=== PATIENT | female | born 1995 | race Two or more races ===

== ENCOUNTER 2024-11-09 18:22 | Emergency (ER) | payer SELFPAY ==
[~2024-11-09] VITALS: Ht 149.9 cm; Wt 59.9 kg
[2024-11-09 18:30] VITALS: BP 118/71; PULSE 74; RESP 16; O2SAT 99
== END 2024-11-09 21:23 | disposition left against medical advice (07) ==
LOC: ER 18:22
DX: R51.9 Headache, unspecified (principal); Z53.21 Procedure and treatment not carried out due to patient leaving prior to being seen by health care provider

== ENCOUNTER 2025-06-08 17:30 | Emergency (ER) | payer OTHER ==
[~2025-06-08] VITALS: Ht 149.9 cm; Wt 60.1 kg
[2025-06-08 17:38] VITALS: BP 129/67; PULSE 65; RESP 18; TEMP 98.9; O2SAT 100
[2025-06-08] MEDS ORDERED: IBUP-1456 PO (18:37)
--- NOTE | 2025-06-08 18:38 | ED.PDOC ---
HPI Comments LACERATION TO LEFT THUMB NAIL WITH KNIFE WHILE CUTTING [place] TODAY BLEEDING CONTROLLED STRONG PULSES, CAP REFILL <3 SEC. denies numbness and weakness Chief Complaint: Laceration Time Seen by MD: 18:06 Primary Care Provider: NONE Reviewed Notes: Nurses Notes, Medications, Allergies Allergies: Coded Allergies: NO KNOWN ALLERGIES (Unverified , 11/09/24) Information Source: Patient Mode of Arrival: Ambulatory Complexity: Simple Laceration Length (cm): 2 Past Medical History PAST MEDICAL HISTORY: Denies Surgical History: Denies all surgeries SERVER PROGRAMMER History: No Pertinent SERVER PROGRAMMER History Family History Family History: Reviewed,noncontributory to illness Social History Smoker: Non-Smoker Alcohol: Denies ETOH Use Drugs: Denies Drug Use All Other Systems: Reviewed and Negative (see hpi) Physical Exam General Appearance: No Apparent Distress, Normal HEENT: Pharynx Normal Neck: Full Range of Motion, Non-Tender Respiratory: Lungs Clear, No Respiratory Distress, Normal Breath Sounds Cardiovascular: No Murmur, Normal Peripheral Pulses, Regular Rate/Rhythm Breast Exam: Deferred Gastrointestinal: Non Tender, Soft Genitalia: Deferred Pelvic: Deferred Rectal: Deferred Extremities: Normal capillary refill, Normal range of motion, Non-tender Musculoskeletal : Apperance: Normal Neurologic: Alert, No Motor Deficits, Normal Affect, Normal Mood, No Sensory Deficits Cerebellar Function: Normal Reflexes: NOT DONE Skin: Dry, Lacerations (Superficial laceration distal phalanx left thumb slight sliced into the nail but intact refill less than 3 seconds foreign body), Normal Color, Warm Lymphatic: No Adenopathy Was a procedure done? Was a procedure done?: Yes Sedation Sedation?: No Informed consent obtained: Yes Laceration Repair : Location left distal thumb Length 2 cm Anesthetic: Nothing Laceration Repair Prep: Saline, by Irrigation Laceration Repair Wound Comple: subcut tissue repair Laceration Repair: Gauze (with surgicell) Informed consent obtained: Yes Risks, benefits, and alternati: Yes Notes Patient tolerated well with minimal blood loss Differential diagnosis Generic Laceration: Fracture, Retained Foriegn Body, Neurovascular Injury, Tendon Injury X-Ray, Labs, Meds, VS Vital Signs Date Time Temp Pulse Resp B/P (MAP) Pulse Ox O2 Delivery O2 Flow Rate FiO2 06/08/25 17:38 98.9 65 18 129/67 100 98.9 X-Ray, Labs, Meds, VS Comment See procedure note. Post wound care provided. Counter Tylenol or Motrin as needed for the pain per labeled dosing instructions 2-3 days with the primary care for wound evaluation. ER Return precautions patient indicates understanding agrees with discharge plan of care. Time of 1ST Reevaluation: 18:05 Reevaluation 1ST: Unchanged Time of 2ND Reevaluation: 18:36 Reevaluation 2ND: Improved Patient Education/Counseling: Diagnosis, Treatment, Prognosis, Need For Follow Up Family Education/Counseling: No Family Present Departure 1 Departure Time of Disposition: 18:37 Impression: Primary Impression: Superficial laceration of finger Disposition: 01 HOME / SELF CARE / HOMELESS Condition: Stable e-Prescriptions Ibuprofen (Ibuprofen) 800 Mg Tab 800 MG PO Q8HP PRN for 4 Days, #12 TAB Prov: MI ALMODOVAR 06/08/25 Discharged With: Spouse Critical Care Note Critical Care Time?: No Stability Stability form required: MI Hancock Jun 08, 2025 18:38
== END 2025-06-08 18:46 | disposition home or self-care (01) ==
LOC: ER 17:30
DX: S61.112A Laceration without foreign body of left thumb with damage to nail, initial encounter (principal); W26.0XXA Contact with knife, initial encounter; Y93.89 Activity, other specified; Y92.89 Other specified places as the place of occurrence of the external cause; Y99.8 Other external cause status

== ENCOUNTER 2025-06-17 23:15 | Emergency (ER) | payer OTHER ==
[~2025-06-17] VITALS: Ht 149.9 cm; Wt 60.7 kg
--- NOTE | 2025-06-18 01:14 | DVH ---
CLINICAL INDICATION: left knee pain TECHNIQUE: XY L KNEE 3V XRAY Comparison: None FINDINGS/IMPRESSION: : There is no evidence of acute fracture or dislocation. Soft tissues are unremarkable.
[2025-06-18] MEDS ORDERED: IBUP-1456 PO (03:41)
--- NOTE | 2025-06-18 03:41 | ED.PDOC ---
Musculoskeletal HPI Comments 30-year-old female presents to ER with complaints of left knee pain x5 days. Patient reports that she started experiencing left knee pain five days ago s/p falling off her "longboard" and landing on her left knee onto pavement. She rates her current pain a 9/10 to left knee and notes she's been taking ibuprofen for her pain with slight relief. Patient presents to ER ambulatory on arrival, with steady gait, in no distress. Denies numbness/tingling, left hip pain, left tib/fib pain, left ankle pain or any further symptoms/complaints Chief Complaint: Fall Injury Time Seen by MD: 23:47 Primary Care Provider: UNKNOWN Reviewed Notes: Nurses Notes, Medications, Allergies Allergies: Coded Allergies: NO KNOWN ALLERGIES (Unverified , 11/09/24) Home Meds Active Scripts Ibuprofen (Ibuprofen) 800 Mg Tab, 1 TAB PO TID PRN, #30 TAB 0 Refills Prov:MAURI ST 06/18/25 Discontinued Scripts Ibuprofen (Ibuprofen) 800 Mg Tab, 800 MG PO Q8HP PRN for 4 Days, #12 TAB Prov:MI ALMODOVAR 06/08/25 Information Source: Patient Mode of Arrival: Ambulatory Past Medical History PAST MEDICAL HISTORY: Denies Surgical History: Denies all surgeries SOIL CONSERVATION TECHNICIAN History: No Pertinent SOIL CONSERVATION TECHNICIAN History LMP "Current" Family History Family History: Unknown Social History Smoker: Non-Smoker Alcohol: Denies ETOH Use Drugs: Denies Drug Use Lives In: Home Constitutional: denies: chills, diaphoresis, fatigue, fever, malaise, sweats, weakness, others EENTM: denies: blurred vision, double vision, ear bleeding, ear discharge, ear drainage, ear pain, ear ringing, eye pain, eye redness, hearing loss, mouth pain, mouth swelling, nasal discharge, nose bleeding, nose congestion, nose pain, photophobia, tearing, throat pain, throat swelling, voice changes, others Respiratory: denies: cough, hemoptysis, orthopnea, SOB at rest, shortness of breath, SOB with excertion, stridor, wheezing, others Cardiovascular: denies: chest pain, dizzy spells, diaphoresis, Dyspnea on exertion, edema, irregular heart beat, left arm pain, lightheadedness, palpitations, PND, syncope, others Gastrointestinal: denies: abdomen distended, abdominal pain, blood streaked bowels, constipated, diarrhea, dysphagia, difficulty swallowing, hematemesis, melena, nausea, poor appetite, poor fluid intake, rectal bleeding, rectal pain, vomiting, others Genitourinary: denies: abnormal vagina bleeding, burning, dyspareunia, dysuria, flank pain, frequency, hematuria, incontinence, pain, , vagina discharge, urgency, others Neurological: denies: dizziness, fainting, headache, left sided numbness, left sided weakness, numbness, paresthesia, pre-existing deficit, right sided numbness, right sided weakness, seizure, speech problems, tingling, tremors, weakness, others Musculoskeletal: reports: others (As stated in HPI) Integumetry: denies: bruises, change in color, change in hair/nails, dryness, laceration, lesions, lumps, rash, wounds, others Allergic/Immunocompromised: denies: Difficulty Healing, Frequent Infections, Hives, Itching, others Hematologic/Lymphatic: denies: anemia, blood clots, easy bleeding, easy bruis ing, swollen glands, others Endocrine: denies: excessive hunger, excessive sweating, excessive thirst, exc essive urination, flushing, intolerance to cold, intolerance to heat, unexplained weight gain, unexplained weight loss, others Psychiatric: denies: anxiety, bipolar disorder, depression, hopeless, panic disorder, schizophrenia, sleepless, suicidal, others Physical Exam General Appearance: No Apparent Distress HEENT: PERRL/EOMI Neck: Full Range of Motion, Non-Tender, Normal Respiratory: Chest Non-Tender, Lungs Clear, No Accessory Muscle Use, No Respiratory Distress, Normal Breath Sounds Cardiovascular: No Murmur, No Gallop, Regular Rate/Rhythm Breast Exam: Deferred Gastrointestinal: NOT DONE Genitalia: Deferred Pelvic: Deferred Rectal: Deferred Extremities: No calf tenderness, Normal capillary refill, Normal range of motion Musculoskeletal : Extremity Location: Knee (TTP/mild healing abrasions noted to left anterior knee. No signs of infection appreciated. Positive anterior drawer test left knee. Negative Anna's test left knee. No further skin changes noted. Pulses intact. No other TTP to left lower extremity noted) Neurologic: Alert, No Motor Deficits, Normal Affect, Normal Mood, No Sensory Deficits Cerebellar Function: Normal Reflexes: Normal Skin: Dry, Normal Color, Warm Peripheral Pulses: 2+ dorsalis pedis (L), 2+ Radial (R), 2+ Radial (L), 2+ Brachial (R), 2+ Brachial (L) Lymphatic: No Adenopathy Was a procedure done? Was a procedure done?: No Sedation Sedation?: No Differential Diagnosis EXT Differential Diagnosis: Fracture, Dislocation, Neurovascular injury X-Ray, Labs, Meds, VS Vital Signs Date Time Temp Pulse Resp B/P (MAP) Pulse Ox O2 Delivery O2 Flow Rate FiO2 06/17/25 23:15 98.3 78 18 123/83 97 98.3 PATIENT: PARISH HAYESACCT: [id number] UNIT: [id number] : 1995 LOC: ER ROOM / BED: / AGE / SEX: 30 / F ADM STATUS: REG ER SERVICE [id number] ORDERING PHYSICIAN: MAURI ST PROCEDURE(s): LKNE3 - L KNEE 3V XRAY REASON: left knee pain ORDER NUMBER(s): [id number], ACCESSION NUMBER(s): [id number] CLINICAL INDICATION: left knee pain TECHNIQUE: XY L KNEE 3V XRAY Comparison: None FINDINGS/IMPRESSION: : There is no evidence of acute fracture or dislocation. Soft tissues are unremarkable. ATED BY: DAVID CULLEN MD DICTATED DATE/TIME: 06/18/25110 SIGNED BY: DAVID CULLEN MD SIGNED DATE/TIME: 06/18/25110 CC: Left knee x-ray reviewed Left knee immobilizer applied Toradol 60 mg IM ordered Patient neurovascularly intact and reported improvement in symptoms prior to discharge Advised to follow up with PCP and orthopedics in 1-2 days Patient verbalized understanding and agreeable with current plan of care Advised to return to ER immediately if symptoms worsen Images Reviewed?: Images reviewed and evaluated by me Time of 1ST Reevaluation: 03:24 Reevaluation 1ST: N/A Patient Education/Counseling: Diagnosis, Treatment, Prognosis, Need For Follow Up Family Education/Counseling: No Family Present Departure 1 Departure Time of Disposition: 03:40 Impression: Primary Impression: Left knee sprain Qualified Codes: S83.92XA - Sprain of unspecified site of left knee, initial encounter Disposition: HOME / SELF CARE / HOMELESS Condition: Stable e-Prescriptions Ibuprofen (Ibuprofen) 800 Mg Tab 1 TAB PO TID PRN, #30 TAB 0 Refills Prov: MAURI ST 06/18/25 Discharged With: Friend Critical Care Note Critical Care Time?: No Stability Stability form required: No Heart Score Heart Score: Heart Score Response (Comments) Value History N/A 0 EKG N/A 0 Age N/A 0 Risk Factors N/A 0 Troponin N/A 0 Total [address] Jun 18, 2025 03:41
[2025-06-18] MEDS: KETOROLAC TROMETH 60MG/2ML VIAL IM ONE (05:16)
[2025-06-18 05:37] VITALS: BP 111/61; PULSE 56; RESP 12; TEMP 98.2; O2SAT 98
== END 2025-06-18 04:45 | disposition home or self-care (01) ==
LOC: ER 23:15
DX: S83.92XA Sprain of unspecified site of left knee, initial encounter (principal); Z79.899 Other long term (current) drug therapy; W19.XXXA Unspecified fall, initial encounter; Y93.89 Activity, other specified; Y92.89 Other specified places as the place of occurrence of the external cause; Y99.8 Other external cause status
CPT/HCPCS: 29505; 73562; 96372; 99283; J1885

== ENCOUNTER 2025-06-27 01:17 | Inpatient (IN) | payer OTHER ==
[~2025-06-27] VITALS: Ht 149.9 cm; Wt 67.4 kg
[~2025-06-27 01:17] MED LIST: IBUP-1456 PO
[2025-06-27 01:44] VITALS: PULSE 68; RESP 18; O2SAT 99
[2025-06-27] MEDS: HYDROcodone-ACET 10/325MG TAB PO ONE (01:44)
[2025-06-27 02:17] LABS: Alkaline Phosphatase 59 U/L (46-116); Anion Gap 9 (5-15); BUN/Creatinine Ratio 14.6 (10.0-20.0); Blood Urea Nitrogen 14 mg/dL (9-23); Calcium 9.4 mg/dL (8.7-10.4); Carbon Dioxide 25 mmol/L (20-31); Chloride 106 mmol/L (98-107); Glucose 102 mg/dL (74-106); Potassium 3.8 mmol/L (3.5-5.1); Sodium 140 mmol/L (136-145); Total Protein 6.9 g/dL (5.7-8.2)
[2025-06-27 02:18] LABS: Albumin 4.4 g/dL (3.2-4.8); Bilirubin, Total 0.8 mg/dL (0.2-1.0); Hematocrit 34.0 % (36.0-46.0); Hemoglobin 12.4 g/dL (12.2-16.2); Mean Corpuscular Hemoglobin 32.8 pg (28.0-32.0); Mean Corpuscular Volume 90.1 fL (80.0-100.0); Nucleated Red Blood Cells % 0.1 %
[2025-06-27 02:19] LABS: Alanine Aminotransferase 9 U/L (7-40)
--- NOTE | 2025-06-27 02:40 | ED.PDOC ---
History of Present Illness HPI Comments This patient is a 30-year-old female who was brought to the ED today via EMS due to complaints of bilateral leg pain and weakness concerns. Patient states she was at home when she had a mechanical fall event. Patient states it status post to that event she has not been able to extend her legs and she has had bilateral thigh pain concerns. Patient gives a medical history of possible MS diagnosis for which she is being worked up through her primary care provider. Patient states this pain is new she does note multiple sites of "flare-ups" of pain and weakness upper and lower extremities Currently follows with neurology and rheumatology patient states she has an MRI scheduled of her brain August 02 follows at [facility]. Patient denies any fever nausea or vomiting. Patient denies any head trauma or blood loss from a traumatic event. Chief Complaint: Lower Extremity Time Seen by MD: 01:29 Primary Care Provider: UNKNOWN Reviewed Notes: Nurses Notes, Camp Tender Notes, Medications, Allergies Allergies: Coded Allergies: NO KNOWN ALLERGIES (Unverified , 11/09/24) Home Meds Active Scripts Ibuprofen (Ibuprofen) 800 Mg Tab, 1 TAB PO TID PRN, #30 TAB 0 Refills Prov:AMURI ST 06/18/25 Information Source: Patient, Emergency Med Personnel Mode of Arrival: EMS Severity: Moderate Timing: Minutes Duration: Since onset Prehospital treatment: None Past Medical History PAST MEDICAL HISTORY: Denies Surgical History: Denies all surgeries SILK SCREEN CUTTER History: No Pertinent SILK SCREEN CUTTER History Family History Family History: Unknown Social History Smoker: Non-Smoker Alcohol: Denies ETOH Use Drugs: Denies Drug Use Lives In: Home Constitutional: denies: chills, diaphoresis, fatigue, fever, malaise, sweats, weakness, others EENTM: denies: blurred vision, double vision, ear bleeding, ear discharge, ear drainage, ear pain, ear ringing, eye pain, eye redness, hearing loss, mouth pain, mouth swelling, nasal discharge, nose bleeding, nose congestion, nose pain , photophobia, tearing, throat pain, throat swelling, voice changes, others Respiratory: denies: cough, hemoptysis, orthopnea, SOB at rest, shortness of breath, SOB with excertion, stridor, wheezing, others Cardiovascular: denies: chest pain, dizzy spells, diaphoresis, Dyspnea on exertion, edema, irregular heart beat, left arm pain, lightheadedness, palpitations, PND, syncope, others Gastrointestinal: denies: abdomen distended, abdominal pain, blood streaked bowels, constipated, diarrhea, dysphagia, difficulty swallowing, hematemesis, melena, nausea, poor appetite, poor fluid intake, rectal bleeding, rectal pain, vomiting, others Genitourinary: denies: abnormal vagina bleeding, burning, dyspareunia, dysuria, flank pain, frequency, hematuria, incontinence, pain, , vagina discharge, urgency, others Neurological: denies: dizziness, fainting, headache, left sided numbness, left sided weakness, numbness, paresthesia, pre-existing deficit, right sided numbness, right sided weakness, seizure, speech problems, tingling, tremors, weakness, others Musculoskeletal: reports: others (Bilateral lower extremity tightness and bilateral thigh pain); denies: back pain, gout, joint pain, joint swelling, muscle pain, muscle stiffness, neck pain Integumetry: denies: bruises, change in color, change in hair/nails, dryness, laceration, lesions, lumps, rash, wounds, others Allergic/Immunocompromised: denies: Difficulty Healing, Frequent Infections, Hives, Itching, others Hematologic/Lymphatic: denies: anemia, blood clots, easy bleeding, easy bruising, swollen glands, others Endocrine: denies: excessive hunger, excessive sweating, excessive thirst, excessive urination, flushing, intolerance to cold, intolerance to heat, unexplained weight gain, unexplained weight loss, others Psychiatric: denies: anxiety, bipolar disorder, depression, hopeless, panic disorder, schizophrenia, sleepless, suicidal, others Physical Exam General Appearance: Moderate Distress (Moderate distress due to bilateral lower extremity concerns.), Normal HEENT: Normal ENT Inspection, Pharynx Normal, TMs Normal Neck: Full Range of Motion, Non-Tender, Normal, Normal Inspection Respiratory: Chest Non-Tender, Lungs Clear, No Accessory Muscle Use, No Respiratory Distress, Normal Breath Sounds Cardiovascular: No Edema, No JVD, No Murmur, No Gallop, Normal Peripheral Pulses, Regular Rate/Rhythm Breast Exam: Deferred Gastrointestinal: No Organomegaly, Non Tender, No Pulsatile Mass, Normal Bowel Sounds, Soft Genitalia: Deferred Pelvic: Deferred Rectal: Deferred Extremities: Other (Bilateral lower extremities were unremarkable on evaluation. No signs of trauma. No edema or ecchymosis. No peripheral vascular disease. Patient states pain on palpation of bilateral anterior thighs.) Neurologic: Alert Cerebellar Function: NOT DONE Reflexes: NOT DONE Skin: Dry, Normal Color, Warm Lymphatic: No Adenopathy Was a procedure done? Was a procedure done?: No Differential Dx Considerations may include: Sepsis, electrolyte abnormality, lumbar radiculopathy X-Ray, Labs, Meds, VS Vital Signs Date Time Temp Pulse Resp B/P (MAP) Pulse Ox O2 Delivery O2 Flow Rate FiO2 06/27/25 03:46 63 14 115/65 06/27/25 03:16 67 20 126/67 06/27/25 01:44 68 18 99 Room Air* 0 21 06/27/25 01:44 98.4 18 68 116/91 (99) 99 98.4 06/27/25 01:22 98.4 68 18 116/91 99 98.4 Lab Test 06/27/25 01:39 Range/Units White Blood Count 7.2 4.4-10.8 10^3/uL Red Blood Count 3.78 L 4.0-5.20 10^6/uL Hemoglobin 12.4 12.2-16.2 g/dL Hematocrit 34.0 L 36.0-46.0 % Mean Corpuscular Volume 90.1 80.0-100.0 fL Mean Corpuscular Hemoglobin 32.8 H 28.0-32.0 pg Mean Corpuscular Hemoglobin Concent 36.4 H 32.0-36.0 g/dL Red Cell Distribution Width 13.1 11.8-14.3 % Platelet Count 330 140-450 10^3/uL Mean Platelet Volume 8.4 6.9-10.8 fL Neutrophils (%) (Auto) 58.0 37.0-80.0 % Lymphocytes (%) (Auto) 31.5 10.0-50.0 % Monocytes (%) (Auto) 8.0 0.0-12.0 % Eosinophils (%) (Auto) 1.8 0.0-7.0 % Basophils (%) (Auto) 0.7 0.0-2.0 % Neutrophils # (Auto) 4.2 1.6-8.6 10 ^3/uL Lymphocytes # (Auto) 2.3 0.4-5.4 10 ^3/uL Monocytes # (Auto) 0.6 0-1.3 10 ^3/uL Eosinophils # (Auto) 0.1 0-0.8 10 ^3/uL Basophils # (Auto) 0.1 0-0.2 10 ^3/uL Nucleated Red Blood Cells 0.1 % Erythrocyte Sedimentation Rate Pending Sodium Level 140 136-145 mmol/L Potassium Level 3.8 3.5-5.1 mmol/L Chloride Level 106 98-107 mmol/L Carbon Dioxide Level 25 20-31 mmol/L Anion Gap 9 5-15 Blood Urea Nitrogen 14 9-23 mg/dL Creatinine 0.96 0.550-1.02 mg/dL Glomerular Filtration Rate Calc 81 >90 mL/min BUN/Creatinine Ratio 14.6 10.0-20.0 Serum Glucose 102 74-106 mg/dL Calcium Level 9.4 8.7-10.4 mg/dL Total Bilirubin 0.8 0.2-1.0 mg/dL Aspartate Amino Transferase (AST) 15 13-40 U/L Alanine Aminotransferase (ALT) 9 7-40 U/L Alkaline Phosphatase 59 46-116 U/L C-Reactive Protein High Sensitivity 0.02 <1.0 mg/dL Total Protein 6.9 5.7-8.2 g/dL Albumin 4.4 3.2-4.8 g/dL Current Medications Medications (Trade) Dose Ordered Sig/Cynthia Route Start Time Stop Time Status Last Admin Acetaminophen/ Hydrocodone Bitart (Model 10/325MG Tab) 1 tab ONCE ONCE PO 06/27/25 01:45 06/27/25 01:46 DC 06/27/25 01:44 Methylprednisolone Sodium Succinate (Solu Medrol) 125 mg ONCE ONCE IV 06/27/25 03:15 06/27/25 03:16 DC 06/27/25 03:15 Morphine Sulfate 2 mg ONCE ONCE IV 06/27/25 03:15 06/27/25 03:16 DC 06/27/25 03:16 X-Ray, Labs, Meds, VS Comment Studies and imaging were pending at time of this note. Patient care is being transferred to [facility] for evaluation of laboratory and imaging results. Once returned, he will respond accordingly. CT brain shows no acute findings. Does show otitis media however patient has no fever or pain CT cervical spine shows no acute fractures subluxations or osseous lesions. CT Lumbar spine shows no acute fractures subluxations or osseous lesions Patient was given Model 10 mg p.o. patient reports pain continues. Lumbar spine x-ray shows no acute fractures subluxations or osseous lesions. Patient was then given Solu-Medrol 125 mg IV push in 2 mg of morphine IV push she reports improvement in pain however notes continued weakness in her right lower extremi ty. Patient states the weakness on the right side continues in his unable to ambulate. Patient states this pain is new she does note multiple sites of "flare-ups" of pain and weakness upper and lower extremities Currently follows with neurology and rheumatology patient states she has an MRI scheduled of her brain August 02 follows at [facility]. Patient placed for hospitalist for admission for further workup of current weakness and pain. Recommend Neurology and rheumatology consultation, consider GuillainBarr syndrome (GBS), MS workup. Continue to manage patient's pain CRP negative CMP within normal limits CBC within normal limits Pending ESR Time of 1ST Reevaluation: 02:39 Reevaluation 1ST: Improved Time of 2ND Reevaluation: 03:44 Reevaluation 2ND: Improved Consultation: PCP Patient Education/Counseling: Diagnosis, Treatment Family Education/Counseling: Diagnosis, Treatment SEPSIS Sepsis Screen Date sepsis recognized/suspect: Jun 27, 2025 Time Sepsis recognized/suspect: 0122 Recent Procedure: No On Antibiotic Therapy: No Respiratory Rate >20: No Heart Rate >90: No Temp<36 C (96.8 F) or >38.3 C: No SBP <90 or MAP <65 mmHG: No New Acute Mental Status Change: No Is the patient on CPAP, BIPAP,: No Physician Orders Urinalysis (06/27/25 01:33) Lumbar Spine 3 View (06/27/25 01:33) Head Without Contrast (06/27/25 03:55) Cervical Without Contrast (06/27/25 03:55) Ls Spine Wo Contrast (06/27/25 03:57) Erythrocyte Sedimentation Rate (06/27/25 03:58) Vital Signs Date Time Temp Pulse Resp B/P (MAP) Pulse Ox O2 Delivery O2 Flow Rate FiO2 06/27/25 03:46 63 14 115/65 06/27/25 03:16 67 20 126/67 06/27/25 01:44 68 18 99 Room Air* 0 21 06/27/25 01:44 98.4 18 68 116/91 (99) 99 98.4 06/27/25 01:22 98.4 68 18 116/91 99 98.4 Laboratory Tests Test 06/27/25 01:39 White Blood Count 7.2 10^3/uL (4.4-10.8) Medications Medications Dose Ordered Sig/Cynthia Route Start Time Stop Time Status Last Admin Dose Admin Acetaminophen/ Hydrocodone Bitart 1 tab ONCE ONCE PO 06/27/25 01:45 06/27/25 01:46 DC 06/27/25 01:44 Methylprednisolone Sodium Succinate 125 mg ONCE ONCE IV 06/27/25 03:15 06/27/25 03:16 DC 06/27/25 03:15 Morphine Sulfate 2 mg ONCE ONCE IV 06/27/25 03:15 06/27/25 03:16 DC 06/27/25 03:16 Departure 1 Departure Time of Disposition: 02:39 Impression: Primary Impression: Right leg pain Additional Impression: Lower extremity weakness Qualified Codes: R29.898 - Other symptoms and signs involving the musculoskeletal system Disposition: ADMITTED INPATIENT Condition: Fair Discharged With: Self Critical Care Note Critical Care Time?: No Stability Stability form required: No Heart Score Heart Score: Heart Score Response (Comments) Value History N/A 0 EKG N/A 0 Age N/A 0 Risk Factors N/A 0 Troponin N/A 0 Total 0 CELSO GARCIA PAC Jun 27, 2025 02:40 MI ALMODOVAR [employer]ER Jun 27, 2025 03:50
--- NOTE | 2025-06-27 02:48 | DVH ---
INDICATION: Bilateral lower extremity neuropathy COMPARISON: None TECHNIQUE: 3 views of the lumbar spine were obtained. FINDINGS: The lumbar vertebral alignment is normal. The intervertebral disc spaces are well-maintained. No significant facet arthropathy is noted. No acute fracture, vertebral compression deformity or aggressive osseous lesions. The paravertebral soft tissues are grossly unremarkable. IMPRESSION: 1. No acute fracture.
[2025-06-27] MEDS: methylPREDNISolone SOD SUCC 125 MG/2 ML VL IV ONE (03:15)
[2025-06-27] MEDS: MORPHINE SULFATE INJ 2 MG/ml SYRG IV ONE (03:16)
--- NOTE | 2025-06-27 04:35 | DVH ---
EXAM: CT HEAD WITHOUT CONTRAST INDICATION: right extremity weakness and pain TECHNIQUE: CT of the head without intravenous contrast. Radiation Dose : 1. Head: CT Dose: CTDI volume is 54.62 mGy. Dose-length product is 967.14 mGy*cm The dose indicators for CT are the volume Computed Tomography (CT) Dose Index (CTDIvol) and the Dose Length Product (DLP), and are measured in units of mGy and mGy-cm, respectively. These indicators are not patient dose, but values generated from the CT scanner acquisition factors. The report includes radiation exposure data for exposures received during this examination. COMPARISON: CT CERVICAL WITHOUT CONTRAST on DOS: 06/27/25 FINDINGS: There is no evidence of acute intracranial hemorrhage, extra-axial collection, mass effect, midline s hift, herniation or hydrocephalus. The ventricles, sulci and cisterns are age appropriate. The valles-white differentiation is intact. Left maxillary mucosal sinus disease. The remaining visualized paranasal sinuses are clear. There is chronic appearing scarring of the bilateral mastoid air cells, [id number]. Opacificatio n of the left middle ear cavity suggests otitis media. The surrounding soft tissues and osseous structures are unremarkable. IMPRESSION: 1. No acute Radiation optimization: All CT scans at this facility use at least one of these dose optimization megan hniques: automated exposure control mA and/or kV adjustment per patient size (includes targeted exam s where dose is matched to clinical indication) or iterative reconstruction.
--- NOTE | 2025-06-27 04:37 | DVH ---
EXAM: CT LS SPINE WO CONTRAST INDICATION: right lower extremity weakness and pain COMPARISON: XY LUMBAR SPINE 3 VIEW on DOS: 06/27/25 TECHNIQUE: Multiple axial CT images of the lumbar spine were obtained using bone algorithm. Axial an d coronal reformatting was done. Bone and soft tissue windows were reviewed. Radiation Dose Information: CT Dose: CTDI volume is 17.26 mGy. Dose-length product is 552.0 mGy*cm FINDINGS: No CT evidence of acute fracture or traumatic mal-alignment. The visualized paraspinal soft tissues a re grossly unremarkable. The disc spaces are relatively preserved. There is multilevel degenerative change of the spine, with disc space narrowing, subchondral sclerosis, and marginal osteophyte formation. IMPRESSION: 1. No CT evidence of acute fracture or traumatic mal-alignment of the bony lumbar spine. 2. Radiation optimization: All CT scans at this facility use at least one of these dose optimization techniques: automated exposure control mA and/or kV adjustment per patient size (includes targeted e xams where dose is matched to clinical indication) or iterative reconstruction.
--- NOTE | 2025-06-27 04:40 | DVH ---
EXAM: CT CERVICAL WITHOUT CONTRAST HISTORY: right extermity weakness and pain COMPARISON: None CTDIvol 19.66 mGy, DLP 518.24 mGy*cm. TECHNIQUE: Multiple axial CT images of the spine were obtained using bone algorithm. Axial and coron al reformatting was done. Bone and soft tissue windows were reviewed. FINDINGS: No CT evidence of definite acute fracture, spinal dislocation, or significant appearing acute subluxa tion is seen. The visualized paraspinal soft tissues are grossly unremarkable. IMPRESSION: 1. No definite CT evidence of acute fracture or dislocation of the bony cervical spine.
--- NOTE | 2025-06-27 07:13 | DVHHP2 ---
History of Present Illness Reason for Visit: Bilateral lower extremity pain status post fall History of Present Illness Kelley Valdes is a 30-year-old female with past medical history of MS, , and tubal ligation who presents to the ED with bilateral leg pain and weakness after she had fallen at home today. Patient reports that she was walking to the restroom around 1:00 a.m. picked up her babies bottle suddenly felt fire, tingling, and pain in her legs bilaterally and just suddenly fell to the ground. She reports that she fell on her left side and back. She denies any head strike or loss of consciousness. She reports that she also had an injection in her left shoulder on June 18 at an outpatient clinic in [place], states it was vitamin per her PCP. Patient reports that she also has a establish care at [facility] [place] and follows up with a dye range operator as well as a neurologist. She also states that she is scheduled for an MRI brain on July 03 at [facility] [place]. She endorses that her mom was diagnosed with MS at 16 but still continues to walk in his on medications. States that her grandma was diagnosed at 13 years of age and was wheelchair-bound until she passed. Patient endorses that she does not use any DMEs at home. She also reports that she is supposed to have a CSF test soon. Patient endorses that she has very active. Patient denies any recent travels, recent sick contacts, recent ingestion of spoiled food, chest pain, shortness of breath, fever, chills, lightheadedness, dizziness, abdominal pain, nausea, vomiting, diarrhea, or urinary symptoms. Past Medical History MS Past Surgical History: , Tubal Ligation Family History: DM, Other (Mom with MS and pacemaker. Grandma with MS. Dad with diabetes.) Smoke: No ALCOHOL: occassional Drugs: Marijuana Lives: with Family Domestic Violence: Neg Review of Systems Constitutional: Yes: Weakness Musculoskeletal: leg pain Allergies: Coded Allergies: NO KNOWN ALLERGIES (Unverified , 11/09/24) Exam Vital Signs Vital Signs Date Time Temp Pulse Resp B/P (MAP) Pulse Ox O2 Delivery O2 Flow Rate FiO2 06/27/25 03:46 63 14 115/65 06/27/25 01:44 99 Room Air* 0 21 06/27/25 01:44 98.4 98.4 General Appearance: Alert, Oriented X3, Cooperative, No acute distress HEENT: Atraumatic, PERRLA, EOMI, Mucous membr. moist/pink Respiratory: Clear to auscultation, Normal air movement Cardiovascular: Regular rate, Normal S1, Normal S2, No murmurs Abdominal: Normal bowel sounds, Soft Extremities: No clubbing, No cyanosis, No edema, Normal pulses Skin: No significant lesion Neuro: Normal speech, Sensation intact Psych/Mental Status: Mental status NL, Mood NL Labs/Xrays Labs Test 06/27/25 01:39 Range/Units White Blood Count 7.2 4.4-10.8 10^3/uL Red Blood Count 3.78 L 4.0-5.20 10^6/uL Hemoglobin 12.4 12.2-16.2 g/dL Hematocrit 34.0 L 36.0-46.0 % Mean Corpuscular Volume 90.1 80.0-100.0 fL Mean Corpuscular Hemoglobin 32.8 H 28.0-32.0 pg Mean Corpuscular Hemoglobin Concent 36.4 H 32.0-36.0 g/dL Red Cell Distribution Width 13.1 11.8-14.3 % Platelet Count 330 140-450 10^3/uL Mean Platelet Volume 8.4 6.9-10.8 fL Neutrophils (%) (Auto) 58.0 37.0-80.0 % Lymphocytes (%) (Auto) 31.5 10.0-50.0 % Monocytes (%) (Auto) 8.0 0.0-12.0 % Eosinophils (%) (Auto) 1.8 0.0-7.0 % Basophils (%) (Auto) 0.7 0.0-2.0 % Neutrophils # (Auto) 4.2 1.6-8.6 10 ^3/uL Lymphocytes # (Auto) 2.3 0.4-5.4 10 ^3/uL Monocytes # (Auto) 0.6 0-1.3 10 ^3/uL Eosinophils # (Auto) 0.1 0-0.8 10 ^3/uL Basophils # (Auto) 0.1 0-0.2 10 ^3/uL Nucleated Red Blood Cells 0.1 % Erythrocyte Sedimentation Rate 6 0-20 mm/hr Sodium Level 140 136-145 mmol/L Potassium Level 3.8 3.5-5.1 mmol/L Chloride Level 106 98-107 mmol/L Carbon Dioxide Level 25 20-31 mmol/L Anion Gap 9 5-15 Blood Urea Nitrogen 14 9-23 mg/dL Creatinine 0.96 0.550-1.02 mg/dL Glomerular Filtration Rate Calc 81 >90 mL/min BUN/Creatinine Ratio 14.6 10.0-20.0 Serum Glucose 102 74-106 mg/dL Calcium Level 9.4 8.7-10.4 mg/dL Total Bilirubin 0.8 0.2-1.0 mg/dL Aspartate Amino Transferase (AST) 15 13-40 U/L Alanine Aminotransferase (ALT) 9 7-40 U/L Alkaline Phosphatase 59 46-116 U/L C-Reactive Protein High Sensitivity 0.02 <1.0 mg/dL Total Protein 6.9 5.7-8.2 g/dL Albumin 4.4 3.2-4.8 g/dL SEPSIS Sepsis Screen Date sepsis recognized/suspect: Jun 27, 2025 Time Sepsis recognized/suspect: 012 Recent Procedure: No On Antibiotic Therapy: No Respiratory Rate >20: No Heart Rate >90: No Temp<36 C (96.8 F) or >38.3 C: No SBP <90 or MAP <65 mmHG: No New Acute Mental Status Change: No Is the patient on CPAP, BIPAP,: No Physician Orders Urinalysis (06/27/25 01:33) Lumbar Spine 3 View (06/27/25 01:33) Head Without Contrast (06/27/25 03:55) Cervical Without Contrast (06/27/25 03:55) Ls Spine Wo Contrast (06/27/25 03:57) Vital Signs Date Time Temp Pulse Resp B/P (MAP) Pulse Ox O2 Delivery O2 Flow Rate FiO2 06/27/25 03:46 63 14 115/65 06/27/25 03:16 67 20 126/67 06/27/25 01:44 68 18 99 Room Air* 0 21 06/27/25 01:44 98.4 18 68 116/91 (99) 99 98.4 06/27/25 01:22 98.4 68 18 116/91 99 98.4 Laboratory Tests Test 06/27/25 01:39 White Blood Count 7.2 10^3/uL (4.4-10.8) Medications Medications Dose Ordered Sig/Cynthia Route Start Time Stop Time Status Last Admin Dose Admin Acetaminophen/ Hydrocodone Bitart 1 tab ONCE ONCE PO 06/27/25 01:45 06/27/25 01:46 DC 06/27/25 01:44 1 TAB Methylprednisolone Sodium Succinate 125 mg ONCE ONCE IV 06/27/25 03:15 06/27/25 03:16 DC 06/27/25 03:15 125 MG Morphine Sulfate 2 mg ONCE ONCE IV 06/27/25 03:15 06/27/25 03:16 DC 06/27/25 03:16 2 MG Assessment/Plan Assessment/Plan Assessment Bilateral lower extremity pain and weakness status post fall Marijuana use Alcohol use History of MS History of History of tubal ligation Plan Admit to med surge Antiemetics Pain management Steroids given in ED Steroids ESR CRP CT lumbar spine noted CT cervical spine noted CT head noted X-ray lumbar spine noted UA UDS Bilateral lower extremity venous ultrasound ordered Diet Home medications noted DVT prophylaxis-SCDs PUD prophylaxis-not indicated no history of GERD or GI bleed Discussed plan of care with patient and nurse Neurology consult Counseled patient on cessation of marijuana and alcohol use [id number] Behavior change smoking greater than 10 minutes about use of other options also gave option of nicotine patch [id number] Preventive counseling healthy eating habits, physical activity, and regular checkups Plan discussed with: Patient Date of Service: Jun 27, 2025 Billing Provider: MABLE JAMES Common Visit Codes: [id number] INP/OBS CARE (HIGH) Secondary Visit Codes: [id number] COUNSELING IND MABLE JAMES Jun 27, 2025 07:13
[2025-06-27] MEDS: MORPHINE SULFATE INJ 2 MG/ml SYRG IV PRN (08:27)
[2025-06-27] MEDS ORDERED: LORA-622 PO (08:32)
[2025-06-27] MEDS ORDERED: methylPREDNISolone SOD SUCC 125 MG/2 ML VL IV SCH (09:15)
--- NOTE | 2025-06-27 09:35 | DVH ---
CLINICAL HISTORY: r/o dvt TECHNIQUE: Color and duplex doppler imagine of the bilateral lower extremity veins was performed. Ves mario compression and augmentation if possible was also performed. COMPARISON: None FINDINGS: Right Lower Extremity: Right common femoral vein: Normal compressibility and flow. Right superficial femoral vein: Normal compressibility and flow. Right popliteal vein: Normal compressibility and flow. Proximal calf veins demonstrate flow. Left Lower Extremity: Left common femoral vein: Normal compressibility and flow. Left superficial femoral vein: Normal compressibility and flow. Left popliteal vein: Normal compressibility and flow. Proximal calf veins demonstrate flow. IMPRESSION: NO SONOGRAPHIC EVIDENCE FOR DEEP VENOUS THROMBOSIS IN THE BILATERAL LOWER EXTREMITY VEINS.
[2025-06-27] MEDS: methylPREDNISolone SOD SUCC 1,000 MG in SODIUM CHL 0.9% 250 ML IV SCH (10:58)
[2025-06-27] MEDS: ONDANSETRON HCL 4 MG/2 ML VIAL IV PRN (12:55)
[2025-06-27 13:01] LABS: Urine Protein, UAD Negative (Negative)
[2025-06-27 13:15] LABS: Cannabinoid Screen, Urine Pos (NEGATIVE); Opiate Scree,Urine Pos (NEGATIVE)
[2025-06-27 13:18] LABS: Amphetamine Screen, Urine Neg (NEGATIVE); Barbiturate Scree,Urine Neg (NEGATIVE); Benzodiazephine Screen, Urine Neg (NEGATIVE); Cocaine Screen, Urine Neg (NEGATIVE); Phencyclidine Screen, Urine Neg (NEGATIVE)
[2025-06-27 17:00] VITALS: BP 119/67; PULSE 54; RESP 16; TEMP 98; O2SAT 99
[2025-06-27 20:00] VITALS: PULSE 91; RESP 16
[2025-06-27] MEDS: HYDROcodone-ACET 5/325MG TAB PO PRN (21:00)
[2025-06-28] VITALS (7 sets, daily range): BP systolic 101–132; BP diastolic 68–89; PULSE 49–63; RESP 16–21; TEMP 97.7–99.1; O2SAT 95–99
[2025-06-28 05:36] LABS: Hematocrit 34.6 % (36.0-46.0); Hemoglobin 12.5 g/dL (12.2-16.2); Mean Corpuscular Hemoglobin 33.1 pg (28.0-32.0); Mean Corpuscular Volume 91.4 fL (80.0-100.0); Nucleated Red Blood Cells % 0.1 %
[2025-06-28 05:50] LABS: Albumin 4.4 g/dL (3.2-4.8); Anion Gap 10 (5-15); BUN/Creatinine Ratio 9.8 (10.0-20.0); Bilirubin, Total 0.6 mg/dL (0.2-1.0); Blood Urea Nitrogen 9 mg/dL (9-23); Calcium 9.4 mg/dL (8.7-10.4); Carbon Dioxide 26 mmol/L (20-31); Chloride 106 mmol/L (98-107); Potassium 4.0 mmol/L (3.5-5.1); Sodium 142 mmol/L (136-145); Total Protein 7.0 g/dL (5.7-8.2)
[2025-06-28 05:52] LABS: Alanine Aminotransferase < 9 U/L (7-40); Alkaline Phosphatase 27 U/L (46-116); Glucose 138 mg/dL (74-106)
[2025-06-28] MEDS ORDERED: GADOTERATE MEG 7.5 MMOL/15ml INJ (0.5MMOL/ml) IV ONE (08:32)
--- NOTE | 2025-06-28 09:47 | DVH ---
EXAM: MRI BRAIN HEAD WO W CONTRAST CLINICAL HISTORY: weakness/numbness legs-family h/o ms COMPARISON: CT HEAD WITHOUT CONTRAST on DOS: 06/27/25 CONTRAST: Gadolinium TECHNIQUE: Multiplanar, multisequence magnetic resonance imaging of the brain was performed before and after the administration of intravenous contrast. FINDINGS: No areas of restricted diffusion. No abnormal contrast enhancement. No acute intracranial hemorrhage, extra-axial fluid collection, mass effect, midline shift, or hydroc ephalus. The ventricles are normal in size. Parenchymal volume is within normal limits. Paranasal sin uses and mastoid air cells are clear. The enhanced portions of the major venous sinuses are unremarka ble. The brainstem is within normal limits. The imaged upper cervical cord is unremarkable. The intra orbital structures are unremarkable. IMPRESSION: Unremarkable examination
--- NOTE | 2025-06-28 12:13 | DVHPN2 ---
Subjective no new complaints Changes from previous H/P or p: No Changes Musculoskeletal: leg pain Objective Vitals Vital Signs Date Time Temp Pulse Resp B/P (MAP) Pulse Ox O2 Delivery O2 Flow Rate FiO2 06/28/25 09:00 98.4 57 20 119/68 (85) 97 98.4 06/27/25 20:00 Room Air* 0 21 Intake/Output Intake and Output 06/28/25 07:00 Intake Total 2050 ml Output Total 2850 ml Balance -800 ml Intake Oral 2050 ml Output Urine Total 2850 ml # Voids 1 General Appearance: Alert, Oriented X3, Cooperative, No acute distress Lungs: Clear to auscultation Cardiovascular: Regular rate, Normal S1, Normal S2, No murmurs Abdomen: Normal bowel sounds, Soft, No tenderness, No hepatospenomegaly, No masses Neuro: Normal speech, Normal tone, Sensation intact, Cranial nerves 3-12 NL, O ther (strength in lower extremities 2/5//sen) Medications Current Medications Medications Dose Ordered Sig/Cynthia Route Start Time Stop Time Status Last Admin Dose Admin Acetaminophen/ Hydrocodone Bitart 1 tab Q4HP PRN PO 06/27/25 07:15 06/28/25 08:27 1 TAB Ondansetron HCl 4 mg Q4HP PRN IV 06/27/25 07:15 06/27/25 12:55 4 MG Acetaminophen 650 mg Q6HP PRN PO 06/27/25 07:15 Morphine Sulfate 2 mg Q4HPRN PRN IV 06/27/25 07:15 06/27/25 14:32 2 MG Methylprednisolone Sodium Succinate 1000 mg/Sodium Chloride 250 ml @ 300 mls/hr DAILY IV 06/27/25 10:00 07/01/25 09:59 06/28/25 10:29 300 MLS/HR Laboratory Results Laboratory Tests 06/28/25 05:05 Chemistry Test 06/28/25 05:05 Albumin 4.4 g/dL (3.2-4.8) Calcium Level 9.4 mg/dL (8.7-10.4) Total Protein 7.0 g/dL (5.7-8.2) LFT Test 06/28/25 05:05 Alanine Aminotransferase (ALT) < 9 U/L (7-40) Alkaline Phosphatase 27 U/L (46-116) L Aspartate Amino Transferase (AST) 15 U/L (13-40) Total Bilirubin 0.6 mg/dL (0.2-1.0) Urinalysis Test 06/27/25 12:35 Urine Color Straw (Yellow) Urine Clarity Clear (Clear) Urine pH 7.5 (5.0-9.0) Urine Specific [place] 1.011 (1.001-1.035) Urine Protein Negative (Negative) Urine Ketones Negative (Negative) Urine Blood Negative /uL (Negative) Urine Nitrite Negative (Negative) Urine Bilirubin Negative (Negative) Urine Urobilinogen Normal mg/dL (Negative) Urine Leukocyte Esterase Negative /uL (Negative) Urine RBC <1 /hpf (0 - 4) Urine Microscopic WBC 1 /HPF (0-5) Urine Squamous Epithelial Cells Few /hpf (<5) Urine Bacteria None seen /hpf (None Seen) Urine Glucose Normal mg/dL (Normal) Labs and/or images reviewed: Labs reviewed by me, Image(s) reviewed by me Assessment/Plan Assessment/Plan weakness/paresthesia lower extremities- ct/mri normal vitamin b12 level pending- plesae check on ths/neuro opinion pending family h/o multiple sclerosis Plan discussed with: Patient, Other My Orders Orders - LUIS MITCHELL MD Procedure Category Date Status Time Vitamin B12 LAB 06/27/25 In Process 16:27 * Neurology Consult CONS 06/27/25 Transmitted 16:29 Brain Head Wo W MRI 06/28/25 Resulted Contrast 16:27 Date of Service: Jun 28, 2025 Billing Provider: LUIS MITCHELL MD Common Visit Codes: [id number] INP/OBS CARE(MOD) LUIS MITCHELL MD Jun 28, 2025 12:13
[2025-06-28] MEDS: ACETAMINOPHEN 325 MG TAB PO PRN (14:43)
[2025-06-28] MEDS: TEMAZEPAM 15 MG CAP PO PRN (23:26)
[2025-06-29 01:00] VITALS: BP 111/74; PULSE 52; RESP 18; TEMP 97.8; O2SAT 99
[2025-06-29 05:00] VITALS: BP 117/80; PULSE 54; RESP 17; TEMP 97.8; O2SAT 100
[2025-06-29 08:47] VITALS: BP 118/69; PULSE 52; RESP 16; TEMP 97.8; O2SAT 97
[2025-06-29 12:57] VITALS: BP 127/86; PULSE 47; RESP 15; TEMP 97.5; O2SAT 100
--- NOTE | 2025-06-29 16:35 | DVHDS2 ---
Discharge Summary Date of Admission Jun 27, 2025 at 07:04 Date of Discharge: Jun 29, 2025 Labs/Diagnostic Data: Laboratory Results Test 06/28/25 05:05 06/27/25 12:35 06/27/25 01:39 06/27/25 01:37 White Blood Count 12.0 10^3/uL (4.4-10.8) Red Blood Count 3.78 10^6/uL (4.0-5.20) Hemoglobin 12.5 g/dL (12.2-16.2) Hematocrit 34.6 % (36.0-46.0) Mean Corpuscular Volume 91.4 fL (80.0-100.0) Mean Corpuscular Hemoglobin 33.1 pg (28.0-32.0) Mean Corpuscular Hemoglobin Concent 36.2 g/dL (32.0-36.0) Red Cell Distribution Width 13.1 % (11.8-14.3) Platelet Count 314 10^3/uL (140-450) Mean Platelet Volume 8.3 fL (6.9-10.8) Neutrophils (%) (Auto) 91.6 % (37.0-80.0) Lymphocytes (%) (Auto) 5.9 % (10.0-50.0) Monocytes (%) (Auto) 2.5 % (0.0-12.0) Eosinophils (%) (Auto) 0.0 % (0.0-7.0) Basophils (%) (Auto) 0.0 % (0.0-2.0) Neutrophils # (Auto) 11.0 10 ^3/uL (1.6-8.6) Lymphocytes # (Auto) 0.7 10 ^3/uL (0.4-5.4) Monocytes # (Auto) 0.3 10 ^3/uL (0-1.3) Eosinophils # (Auto) 0 10 ^3/uL (0-0.8) Basophils # (Auto) 0 10 ^3/uL (0-0.2) Nucleated Red Blood Cells 0.1 % Sodium Level 142 mmol/L (136-145) Potassium Level 4.0 mmol/L (3.5-5.1) Chloride Level 106 mmol/L (98-107) Carbon Dioxide Level 26 mmol/L (20-31) Anion Gap 10 (5-15) Blood Urea Nitrogen 9 mg/dL (9-23) Creatinine 0.92 mg/dL (0.550-1.02) Glomerular Filtration Rate Calc 85 mL/min (>90) BUN/Creatinine Ratio 9.8 (10.0-20.0) Serum Glucose 138 mg/dL (74-106) Calcium Level 9.4 mg/dL (8.7-10.4) Total Bilirubin 0.6 mg/dL (0.2-1.0) Aspartate Amino Transferase (AST) 15 U/L (13-40) Alanine Aminotransferase (ALT) < 9 U/L (7-40) Alkaline Phosphatase 27 U/L (46-116) Total Protein 7.0 g/dL (5.7-8.2) Albumin 4.4 g/dL (3.2-4.8) Urine Color Straw (Yellow) Urine Clarity Clear (Clear) Urine pH 7.5 (5.0-9.0) Urine Specific [place] 1.011 (1.001-1.035) Urine Protein Negative (Negative) Urine Ketones Negative (Negative) Urine Blood Negative /uL (Negative) Urine Nitrite Negative (Negative) Urine Bilirubin Negative (Negative) Urine Urobilinogen Normal mg/dL (Negative) Urine Leukocyte Esterase Negative /uL (Negative) Urine RBC <1 /hpf (0 - 4) Urine Microscopic WBC 1 /HPF (0-5) Urine Squamous Epithelial Cells Few /hpf (<5) Urine Bacteria None seen /hpf (None Seen) Urine Glucose Normal mg/dL (Normal) Urine Opiates Screen Pos (NEGATIVE) Urine Fentanyl Screen Neg (NEGATIVE) Urine Barbiturates Screen Neg (NEGATIVE) Urine Phencyclidine Screen Neg (NEGATIVE) Urine Amphetamines Screen Neg (NEGATIVE) Urine Benzodiazepines Screen Neg (NEGATIVE) Urine Cocaine Screen Neg (NEGATIVE) Urine Cannabinoids Screen Pos (NEGATIVE) Erythrocyte Sedimentation Rate 6 mm/hr (0-20) C-Reactive Protein High Sensitivity 0.02 mg/dL (<1.0) Vitamin B12 Level 547 pg/mL (211-911) Other Laboratory Tests 06/28/25 05:05 Brief Hx & Hospital Course: Kelley Valdes is a 30-year-old female with past medical history of MS, , and tubal ligation who presents to the ED with bilateral leg pain and weakness after she had fallen at home today. Patient reports that she was walking to the restroom around 1:00 a.m. picked up her babies bottle suddenly felt fire, tingling, and pain in her legs bilaterally and just suddenly fell to the ground. She reports that she fell on her left side and back. She denies any head strike or loss of consciousness. She reports that she also had an injection in her left shoulder on June 18 at an outpatient clinic in [place], states it was vitamin per her PCP. Patient reports that she also has a establish care at [facility] and follows up with a information technology intern as well as a neurologist. She also states that she is scheduled for an MRI brain on July 03 at [facility]. She endorses that her mom was diagnosed with MS at 16 but still continues to walk in his on medications. States that her grandma was diagnosed at 13 years of age and was wheelchair-bound until she passed. Patient endorses that she does not use any DMEs at home. She also reports that she is supposed to have a CSF test soon. patient left AMA. has follow up in [facility] for MS. although brain mri negative. pending further workup Condition at Discharge: Stable Final Diagnosis/Problems List MS? transient paralysis ruled out stroke GBS? Discharge Disposition: AMA Discharge Instruct/Medications Scheduled Loratadine (Claritin), 1 TAB PO DAILY, (Reported) Scheduled PRN Ibuprofen (Ibuprofen), 1 TAB PO TID PRN Discharge Statement: "Patient was advised to return to the ER or call 911 if any headaches, dizziness, shortness of breath, chest pain, abdominal pain, bleeding, fevers, or worsening of medical condition. Patient was counseled about treatment plan, medications, possible side effects, patientverbalized understanding. All questions were answered to the best of my ability. This discharge took greater then 30 minutes in planning, reviewing documentation, counseling the patient, and discussing with other team members." ASSESSMENT ASSESSMENT Assessment Date of Service: Jun 29, 2025 Billing Provider: DIANA OROZCO MD Common Visit Codes: [id number] DISCH DAY >30min DIANA OROZCO MD Jun 29, 2025 16:35
== END 2025-06-29 16:17 | disposition left against medical advice (07) | DRG 43 ==
LOC: ER 01:17 → EDBD 01:17 → OVERFLOW 07:04 → EAST 14:55
PROVIDERS: ADMIT Student in an Organized Health Care Education/Training Program; ATTEND Student in an Organized Health Care Education/Training Program
DX: G35 Multiple sclerosis (principal); G61.0 Guillain-Barre syndrome; R29.5 Transient paralysis; A49.1 Streptococcal infection, unspecified site; F12.90 Cannabis use, unspecified, uncomplicated; Z53.29 Procedure and treatment not carried out because of patient's decision for other reasons; Z98.51 Tubal ligation status; Z83.3 Family history of diabetes mellitus; Z82.0 Family history of epilepsy and other diseases of the nervous system; Z79.1 Long term (current) use of non-steroidal anti-inflammatories (NSAID); Z98.891 History of uterine scar from previous surgery; Z99.3 Dependence on wheelchair
CPT/HCPCS: 36415; 70450; 70553; 72100; 72125; 72131; 80053; 80307; 81001; 82607; 85025; 85652; 86038; 86141; 93970; 96374; 96375; G0378; J2405